=== PATIENT | male | born 1930 | race Caucasian/White ===

== ENCOUNTER 2016-09-06 15:27 | Outpatient (CLI) | payer MEDICARE, OTHER | END 2016-09-06 15:28 | disposition critical access hospital (66) | DX: R42 Dizziness and giddiness (principal); R51 Headache; H93.19 Tinnitus, unspecified ear | CPT/HCPCS: A0425; A0429 ==

== ENCOUNTER 2016-09-06 15:46 | Emergency (ER) | payer MEDICARE, OTHER | END 2016-09-06 17:25 | disposition home or self-care (01) | DX: R42 Dizziness and giddiness (principal); I10 Essential (primary) hypertension; Z95.2 Presence of prosthetic heart valve; Z79.01 Long term (current) use of anticoagulants; Z79.82 Long term (current) use of aspirin ==

== ENCOUNTER 2017-08-21 22:38 | Outpatient (CLI) | payer MEDICARE, OTHER | END 2017-08-21 22:39 | disposition short-term general hospital (02) | LOC: EMS 22:38 | PROVIDERS: ATTEND Surgery | DX: R06.02 Shortness of breath (principal); R50.9 Fever, unspecified | CPT/HCPCS: A0425; A0427; A0888 ==

== ENCOUNTER 2017-11-17 09:27 | Outpatient (CLI) | payer MEDICARE, OTHER | END 2017-11-17 09:28 | disposition short-term general hospital (02) | LOC: EMS 09:27 | PROVIDERS: ATTEND Surgery | DX: R11.0 Nausea (principal); R29.6 Repeated falls | CPT/HCPCS: A0425; A0427 ==

== ENCOUNTER 2017-12-15 08:00 | Outpatient (CLI) | payer MEDICARE, OTHER ==
[2017-12-15 12:04] LABS: CALCIUM 8.4 mg/dL (8.5-10.3); CREATININE 0.9 mg/dL (0.6-1.2)
[2017-12-15 12:11] LABS: BASOPHILS # (AUTO) 0.1 10^3/uL (0.0-0.1); EOSINOPHILS # (AUTO) 0.4 10^3/uL (0.0-0.7); EOSINOPHILS % (AUTO) 5.1 %; HGB - HEMOGLOBIN 8.1 g/dL (14.0-18.0); LYMPHOCYTES # (AUTO) 0.9 10^3/uL (1.5-3.5); LYMPHOCYTES % (AUTO) 12.1 %; MEAN CORPUSCULAR HEMOGLOBIN 23.6 pg (27.0-31.0); MEAN CORPUSCULAR HGB CONC 31.4 g/dL (32.0-36.0); MEAN CORPUSCULAR VOLUME 75.3 fL (80.0-94.0); MEAN PLATELET VOLUME 6.7 fL (7.4-11.4); MONOCYTES # (AUTO) 0.9 10^3/uL (0.0-1.0); MONOCYTES % (AUTO) 12.7 %; NEUTROPHILS % (AUTO) 69.1 %; PLT - PLATELET COUNT 321 10^3/uL (130-450); RED BLOOD COUNT 3.41 10^6/uL (4.70-6.10); RED CELL DISTRIBUTION WIDTH 20.6 % (12.0-15.0); WHITE BLOOD COUNT 7.2 x10^3/uL (4.8-10.8)
[2017-12-15 13:12] LABS: PLATELET ESTIMATE, MANUAL NORMAL (130-450,000) (NORMAL); PLATELET MORPHOLOGY 1+ LARGE PLATELETS (NORMAL)
== END 2017-12-15 08:01 ==
LOC: LAB.R 08:00
DX: I10 Essential (primary) hypertension (principal); D64.9 Anemia, unspecified
CPT/HCPCS: 80048; 85025

== ENCOUNTER 2017-12-23 08:00 | Outpatient (CLI) | payer MEDICARE, OTHER ==
[2017-12-23 16:50] LABS: EOSINOPHILS % (AUTO) 3.5 %; HGB - HEMOGLOBIN 8.5 g/dL (14.0-18.0); LYMPHOCYTES % (AUTO) 13.3 %; MEAN CORPUSCULAR HEMOGLOBIN 23.3 pg (27.0-31.0); MEAN CORPUSCULAR HGB CONC 30.7 g/dL (32.0-36.0); MEAN CORPUSCULAR VOLUME 75.7 fL (80.0-94.0); MEAN PLATELET VOLUME 6.8 fL (7.4-11.4); MONOCYTES % (AUTO) 11.8 %; NEUTROPHILS % (AUTO) 70.4 %; PLT - PLATELET COUNT 322 10^3/uL (130-450); RED BLOOD COUNT 3.67 10^6/uL (4.70-6.10); RED CELL DISTRIBUTION WIDTH 20.5 % (12.0-15.0); WHITE BLOOD COUNT 8.1 x10^3/uL (4.8-10.8)
[2017-12-23 16:55] LABS: ABNORMAL LYMPHS % (MANUAL) 0 %
[2017-12-23 16:58] LABS: CALCIUM 8.7 mg/dL (8.5-10.3); CREATININE 0.9 mg/dL (0.6-1.2)
[2017-12-23 18:00] LABS: BAND NEUTROPHILS % (MANUAL) 1 %; BASOPHILS # (MANUAL) 0.1 10^3/uL (0-0.1); BASOPHILS % (MANUAL) 1 %; DIFFERENTIAL COMMENT MANUAL DIFFERENTIAL; EOSINOPHILS # (MANUAL) 0.6 10^3/uL (0-0.7); LYMPHOCYTES # (MANUAL) 0.8 10^3/uL (1.5-3.5); LYMPHOCYTES % (MANUAL) 10 %; MONOCYTES # (MANUAL) 0.7 10^3/uL (0.0-1.0); NEUTROPHILS # (MANUAL) 5.9 10^3/uL (1.5-6.6); NEUTROPHILS % (MANUAL) 72 %; PLATELET ESTIMATE, MANUAL NORMAL (130-450,000) (NORMAL); PLATELET MORPHOLOGY NORMAL APPEARANCE (NORMAL)
== END 2017-12-23 08:01 | disposition home or self-care (01) ==
LOC: LAB.R 08:00
DX: E87.1 Hypo-osmolality and hyponatremia (principal); D64.9 Anemia, unspecified
CPT/HCPCS: 80048; 85025

== ENCOUNTER 2018-01-01 08:00 | Outpatient (CLI) | payer MEDICARE, OTHER ==
[2018-01-01 17:53] LABS: BILIRUBIN,URINE NEGATIVE (NEGATIVE); GLUCOSE, URINE (UA) NEGATIVE (NEGATIVE); KETONES,URINE (UA) NEGATIVE (NEGATIVE); LEUKOCYTE ESTERASE, URINE NEGATIVE (NEGATIVE); NITRITE,URINE NEGATIVE (NEGATIVE); OCCULT BLOOD,URINE SMALL (NEGATIVE); PROTEIN,URINE 30 mg/dL (NEGATIVE); UROBILINOGEN,URINE 0.2 (NORMAL) E.U./dL (NORMAL)
[2018-01-01 17:56] LABS: CLARITY,URINE HAZY (CLEAR)
[2018-01-01 17:58] LABS: BASOPHILS % (AUTO) 0.2 %; EOSINOPHILS % (AUTO) 1.1 %; HGB - HEMOGLOBIN 8.1 g/dL (14.0-18.0); LYMPHOCYTES % (AUTO) 9.1 %; MEAN CORPUSCULAR HEMOGLOBIN 23.3 pg (27.0-31.0); MEAN CORPUSCULAR HGB CONC 31.2 g/dL (32.0-36.0); MEAN CORPUSCULAR VOLUME 74.6 fL (80.0-94.0); MEAN PLATELET VOLUME 6.7 fL (7.4-11.4); MONOCYTES % (AUTO) 12.2 %; NEUTROPHILS % (AUTO) 77.4 %; PLT - PLATELET COUNT 371 10^3/uL (130-450); RED BLOOD COUNT 3.49 10^6/uL (4.70-6.10); RED CELL DISTRIBUTION WIDTH 20.6 % (12.0-15.0); WHITE BLOOD COUNT 11.5 x10^3/uL (4.8-10.8)
[2018-01-01 18:23] LABS: ALBUMIN 2.9 g/dL (3.2-5.5); ALBUMIN/GLOBULIN RATIO 0.8 (1.0-2.2); BILIRUBIN,TOTAL 0.7 mg/dL (0.2-1.0); CALCIUM 8.4 mg/dL (8.5-10.3); CREATININE 0.8 mg/dL (0.6-1.2); MAGNESIUM 1.9 mg/dL (1.7-2.8); TOTAL PROTEIN 6.4 g/dL (6.7-8.2)
[2018-01-01 18:34] LABS: BACTERIA,URINE Rare /HPF (None Seen); SQUAMOUS EPITHELIAL CELL,UR NONE SEEN (<= Few)
[2018-01-01 18:59] LABS: PLATELET ESTIMATE, MANUAL NORMAL (130-450,000) (NORMAL); PLATELET MORPHOLOGY NORMAL APPEARANCE (NORMAL)
[2018-01-01 19:00] LABS: DIFFERENTIAL COMMENT MANUAL=AUTO DIFF
== END 2018-01-01 08:01 | disposition home or self-care (01) ==
LOC: LAB.R 08:00
DX: R79.89 Other specified abnormal findings of blood chemistry (principal); R68.89 Other general symptoms and signs; N39.0 Urinary tract infection, site not specified; E87.1 Hypo-osmolality and hyponatremia; I50.43 Acute on chronic combined systolic (congestive) and diastolic (congestive) heart failure; E61.2 Magnesium deficiency
CPT/HCPCS: 80053; 81001; 81003; 83735; 83880; 85025

== ENCOUNTER 2018-01-12 08:00 | Outpatient (CLI) | payer MEDICARE, OTHER ==
[2018-01-12 16:03] LABS: CALCIUM 8.6 mg/dL (8.5-10.3); CREATININE 0.9 mg/dL (0.6-1.2)
== END 2018-01-12 08:01 | disposition home or self-care (01) ==
LOC: LAB.R 08:00
DX: E87.1 Hypo-osmolality and hyponatremia (principal)
CPT/HCPCS: 80048

== ENCOUNTER 2018-01-20 08:02 | Outpatient (CLI) | payer MEDICARE, OTHER, MEDICAID ==
[2018-01-20] MEDS ORDERED: IOPAMIDOL-300 50 ML VIAL ONE (08:13)
[2018-01-20] MEDS ORDERED: IOPAMIDOL-300 100 ML VIAL ONE (08:13)
[2018-01-20] MEDS ORDERED: IOPAMIDOL-300 100 ML VIAL IVP ONE (09:35)
[2018-01-20] MEDS ORDERED: IOPAMIDOL-300 50 ML VIAL PO ONE (09:35)
--- NOTE | 2018-01-20 15:45 | CT Report ---
Procedure Date: 01/20/2018 Accession Number: [id number] / [id number] Procedure: CT - Abdomen/Pelvis W/ CPT Code: FULL RESULT: EXAM: CT ABDOMEN AND PELVIS EXAM DATE: 01/20/2018 09:32 AM. CLINICAL HISTORY: PROSTATE CANCER. COMPARISONS: None. TECHNIQUE: Routine helical CT imaging was performed through the abdomen and pelvis. IV contrast: 100 cc Isovue-300. Enteric contrast: Positive. Reconstructions: Coronal and sagittal. In accordance with CT protocol optimization, one or more of the following dose reduction techniques were utilized for this exam: automated exposure control, adjustment of mA and/or KV based on patient size, or use of iterative reconstructive technique. FINDINGS: Lung Bases: Unremarkable. Liver: There are fluid density foci within the liver. Gallbladder/Bile Ducts: There is cholelithiasis. No evidence of cholecystitis or bile duct dilatation. Spleen: Normal. Pancreas: Normal. Adrenal Glands: Normal. Kidneys: Normal. No masses or hydronephrosis. Peritoneal Cavity/Bowel: No dilated or thick-walled bowel is seen. No enlarged mesenteric or retroperitoneal lymph nodes. No intraperitoneal free air. There is perirectal and presacral edema. No evidence of appendicitis. Pelvic Organs: Bladder catheter is in place. There may be some urinary bladder wall thickening. There is mild heterogeneity of the prostate gland. No enlarged pelvic lymph nodes are seen. Vasculature: No aneurysms or other significant abnormality. Bones: There is extensive bony metastatic disease. The posterior, inferior margin of the left obturator ring, within the left gluteal soft tissues, there is suggestion of a peripherally enhancing fluid collection measuring approximately 2.5 x 4.5 cm. Other: None. IMPRESSION: 1. There is extensive bony metastatic disease. 2. There is a peripherally enhancing hypodense region which could represent fluid collection at the inferior, posterior margin of the left obturator ring. There is some associated gluteal subcutaneous fat stranding. Differential considerations include abscess, seroma, or soft tissue metastasis. There is no CT evidence of adjacent osteomyelitis. 3. There is cholelithiasis. 4. Mild fat stranding and fluid within the pelvis. 5. The urinary bladder is decompressed. There may be some urinary bladder wall thickening. 6. The prostate is heterogeneous. 7. Findings within the chest are detailed separately. Findings of the study discussed with Dr. Williamson at 1540. RADIA
--- NOTE | 2018-01-20 15:46 | CT Report ---
Procedure Date: 01/20/2018 Accession Number: [id number] / [id number] Procedure: CT - Chest W/ CPT Code: FULL RESULT: EXAM: CT CHEST EXAM DATE: 01/20/2018 09:32 AM. CLINICAL HISTORY: PROSTATE CANCER. COMPARISONS: None. TECHNIQUE: Routine helical CT imaging was performed through the chest. IV contrast: 100 cc Isovue-300. Reconstructions: Coronal and sagittal. In accordance with CT protocol optimization, one or more of the following dose reduction techniques were utilized for this exam: automated exposure control, adjustment of mA and/or KV based on patient size, or use of iterative reconstructive technique. FINDINGS: Lungs/Pleura: There is groundglass opacity with interlobular septal thickening within the left upper lobe. There is a moderate-sized right pleural effusion. Small left pleural effusion. No discrete lung masses are seen. Mediastinum: The patient has undergone median sternotomy for aortic valve replacement. There are coronary artery calcifications. There is some crescent-shaped hyperdensity at the left anterior lateral margin of the descending aorta. There are no enlarged axillary, supraclavicular, mediastinal, or hilar lymph nodes. Bones: There is extensive sclerotic bony metastatic disease. There is fracture through the posterior right seventh rib. Visualized Abdomen: Findings are detailed separately. Other: None. IMPRESSION: 1. There is focal groundglass opacity within the left upper lobe with interlobular septal thickening. Differential considerations include infection, focal edema, or diffuse alveolar damage. This would be an atypical appearance for metastatic disease. 2. There is a moderate size right pleural effusion. There is a small left pleural effusion. 3. There is cardiomegaly. Patient has undergone aortic valve replacement with surgical repair of the aortic root. There is a focus of curvilinear hyperdensity at the left anterolateral margin of the ascending thoracic aorta (for example image 36 series 2). Differential considerations include postoperative change, remnant of prior type A dissection, or small new segment of dissection. Comparison with prior imaging is recommended. 4. There is extensive bony metastatic disease. RADIA The above findings were discussed with Peggy Williamson by Dr. Bora Panda at 15:45 hrs on 01/20/18.
--- NOTE | 2018-01-20 16:00 | Nuclear Medicine Report ---
Procedure Date: 01/20/2018 Accession Number: [id number] / [id number] Procedure: NM - Bone Whole Body CPT Code: FULL RESULT: EXAM: BONE SCAN EXAM DATE: 01/20/2018 12:52 PM. CLINICAL HISTORY: PROSTATE CANCER. COMPARISON: None. TECHNIQUE: Following the intravenous administration of mCi of technetium 99m MDP and an appropriate delay, a whole-body scan was performed in anterior and posterior projections. Site-specific spot views of the region of interest were obtained in various projections. FINDINGS: Exam Quality: Limited visualization of the kidneys, likely secondary to extensive bony uptake. Skull: There is heterogeneous uptake. Thorax: There are numerous lesions within the chest. There are lesions within the proximal humeri. Pelvis: There are numerous lesions within the pelvis. There are lesions within the proximal femurs. Spine: There is extensive metastatic disease within the spine. IMPRESSION: Extensive, diffuse osteoblastic metastatic disease RADIA
== END 2018-01-20 08:03 | disposition home or self-care (01) ==
LOC: DI 08:02
PROVIDERS: ATTEND Internal Medicine
DX: C61 Malignant neoplasm of prostate (principal); M89.9 Disorder of bone, unspecified; K80.20 Calculus of gallbladder without cholecystitis without obstruction; J90 Pleural effusion, not elsewhere classified; I51.7 Cardiomegaly; Z95.2 Presence of prosthetic heart valve
CPT/HCPCS: 71260; 74177; 78306; Q9967

== ENCOUNTER 2018-01-29 11:30 | Outpatient (CLI) | payer MEDICARE, OTHER ==
[2018-01-29 12:23] LABS: ALBUMIN 3.1 g/dL (3.2-5.5); BILIRUBIN,TOTAL 0.7 mg/dL (0.2-1.0); CALCIUM 8.5 mg/dL (8.5-10.3); CREATININE 0.9 mg/dL (0.6-1.2); TOTAL PROTEIN 6.3 g/dL (6.7-8.2)
[2018-01-29 12:46] LABS: BASOPHILS % (AUTO) 0.6 %; EOSINOPHILS % (AUTO) 2.8 %; HGB - HEMOGLOBIN 7.9 g/dL (14.0-18.0); LYMPHOCYTES % (AUTO) 8.8 %; MEAN CORPUSCULAR HEMOGLOBIN 22.7 pg (27.0-31.0); MEAN CORPUSCULAR HGB CONC 31.8 g/dL (32.0-36.0); MEAN CORPUSCULAR VOLUME 71.4 fL (80.0-94.0); MEAN PLATELET VOLUME 6.7 fL (7.4-11.4); NEUTROPHILS % (AUTO) 77.8 %; PLT - PLATELET COUNT 418 10^3/uL (130-450); RED CELL DISTRIBUTION WIDTH 21.4 % (12.0-15.0); WHITE BLOOD COUNT 12.1 x10^3/uL (4.8-10.8)
[2018-01-29 14:43] LABS: ABNORMAL LYMPHS % (MANUAL) 0 %
[2018-01-29 14:44] LABS: BAND NEUTROPHILS % (MANUAL) 8 %; EOSINOPHILS # (MANUAL) 0.2 10^3/uL (0-0.7); LYMPHOCYTES # (MANUAL) 0.2 10^3/uL (1.5-3.5); LYMPHOCYTES % (MANUAL) 2 %; METAMYELOCYTES % (MANUAL) 4 %; MONOCYTES # (MANUAL) 0.8 10^3/uL (0.0-1.0); MYELOCYTES % (MANUAL) 3 %; NEUTROPHILS # (MANUAL) 9.9 10^3/uL (1.5-6.6); NEUTROPHILS % (MANUAL) 74 %
[2018-01-29 14:45] LABS: DIFFERENTIAL COMMENT MANUAL DIFFERENTIAL; PLATELET ESTIMATE, MANUAL NORMAL (130-450,000) (NORMAL)
== END 2018-01-29 11:31 | disposition home or self-care (01) ==
LOC: LAB.R 11:30
DX: R79.89 Other specified abnormal findings of blood chemistry (principal); R68.89 Other general symptoms and signs
CPT/HCPCS: 80053; 85025

== ENCOUNTER 2018-02-03 12:35 | Outpatient (CLI) | payer MEDICARE, OTHER ==
--- NOTE | 2018-02-03 18:08 | CONSULTATION NOTE ---
Palliative Care Consultation - Referral Referring Provider: Dr Sandeep Hilliard Time of Visit: [place] 02/03/2018. 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 He is now living at [facility]. -Medical history: Prostate cancer diagnosed 08/2017 mets to bone; hyponatremia, anemia, HTN, BPV, valvular heart disease s/p surgical repair, aortic valve ( mechanical) replacement in 2003; atrial fibrillation with long-term anticoagulation; seizure disorder; GI bleeding; urinary retention on Sauceda catheter; recurrent C diff infection -In August 2017 he was admitted to [facility] for pneumonia, then to [facility] for rehabilitation. -He discharged home in November 2017 and 3 weeks later got community acquired pneumonia in R lower lobe, hospitalized at [facility] November 17. -He was DC'd to [facility] again, and then transferred to [facility] on December 09, 2017. -In December 2017 the prostate cancer was discovered when the patient had marked SOA , and a chest CT scan was done, showing R-sided infiltrate, concerning for either metastases or lung primary. -Patient had h/o enlarged prostate, so tumor markers were checked, which showed a marked PSA elevation of 5080. The rest of the tumor markers, including CA 19- 9 and CEA, SPEP, and UPEP were negative. -01/20/18 CT chest scan revealed moderate size R pleural effusion, and small L pleural effusion. No discrete lung masses. -01/20/18 CT abd/plelvis shows spleen, pancreas, adrenal glands, kidneys normal. Liver has fluid density foci. Gallbladder has cholelithiasis. -01/20/18 bone scan shows numerous lesions within the chest, numerous lesions within the pelvis, and extensive metastatic disease within the spine. -The plan is to do a bone biopsy on 02/10/18 rather than a lung biopsy since he is too frail for the lung biopsy. -Patient reports no pain. His most pressing issue is nausea, which has been off and on since August, when his health deteriorated. It had improved recently, but today it has worsened, and became worse after the Sauceda catheter was removed yesterday. -Patient has been on Sauceda catheter; a trial removal was performed yesterday and he has not been able to urinate with straight catheterization since the Sauceda was removed. -Nursing staff will replace the Sauceda due to retention. -He has had 3-4 recurrences of C diff colitis, and was treated with Vancomycin; the recent taper-down was completed 01/20/18. -Patient is cognitively intact, but has shown some cognitive deficits and has experienced delusional episodes, as reported by Dr Hilliard. -Patient was DC'd from PT and OT around January 07, but was referred again by Dr Hilliard on 01/28. OT has already evaluated him and will conduct sessions 2x/ week, PT hasn't evaluated him yet. -Patient has had low BP recently, 95/60 with this assessment today, 97/48 twice yesterday. -Spouse reports he doesn't drink much in the way of fluids, but she continually encourages him to drink more. -Patient denies cough, SOB, constipation. He does report dizziness, fell out of wheelchair 02/01. Medical/Surgical History - Past Medical History Cardiovascular: reports: Hypertension, Atrial fibrillation, Valve disorder Neuro: reports: Seizure disorder GI: reports: GI bleed : reports: Retention, Indwelling catheter, Other (gall stones revealed by CT abdomen) HEENT: reports: Macular degeneration MRSA Hx?: No - Past Surgical History Cardiovascular: reports: Valve replacement HEENT: reports: Tonsil/Adenoidectomy - Substance History Tobacco Details: Cigarettes (Smoked in early adulthood.), Other (No alcohol use) Social History - Living Situation Living arrangement: residential ([facility], admitted December 09, 2017) Living Situation: With caregiver(s) Support System: His , Tram lives in a condo in [place]. One daughter lives in the same condo complex. Their other daughter lives in [place], [place]. Their original plan was to move in to their daughter's condo, but this did not work out due to the patient's failing health. The spouse is unable to care for the patient at home. She applied for Medicaid, and the patient has been accepted. Family History - Family History Family History Comment/Other: Mother age 83 of heart problems; she had rheumatic fever in her youth. Father age 58, lung cancer (smoked). Patient had one sister who age 72 of heart disease. Medications/Allergies - Medications Home Medications: Ambulatory Orders Medication Instructions Recorded Confirmed Lamotrigine [Lamotrigine ER] 100 mg PO BID 05/01/15 02/03/18 Tamsulosin HCl [Flomax] 0.4 mg ORAL DAILY 05/01/15 02/03/18 Acetaminophen 650 mg PO Q4H PRN 02/03/18 02/03/18 Ferrous Gluconate 240 mg PO 02/03/18 Furosemide 20 mg PO DAILY 02/03/18 02/03/18 Lisinopril 5 mg PO DAILY PRN 02/03/18 02/03/18 Meclizine HCl [Travel-Ease] 25 mg PO Q6H PRN 02/03/18 02/03/18 Ondansetron HCl [Zofran] 4 mg PO .BEFORE MEALS & QHS 02/03/18 02/03/18 Pantoprazole Sodium 40 mg PO DAILY 02/03/18 02/03/18 Potassium Chloride [Micro-K] 10 meq PO DAILY 02/03/18 02/03/18 Saccharomyces Boulardii [Florastor] 250 mg PO DAILY 02/03/18 02/03/18 Warfarin Sodium [Coumadin] 3 mg PO .EVERY SUN,T,TH,SAT 02/03/18 02/03/18 Warfarin Sodium [Coumadin] 4 mg PO .EVERY M,W,F 02/03/18 02/03/18 - Allergies Allergies/Adverse Reactions: Allergies Allergy/AdvReac Type Severity Reaction Status Date / Time codeine Allergy Unknown Verified 09/06/16 15:54 morphine Allergy Unknown Verified 09/06/16 15:54 Review of Systems - Constitutional Constitutional: reports: Poor appetite (His appetite comes and goes), Weight stable (Weight has been stable, it's 159 lbs on 02/02/18, which was his weight on admission. He gained 2 lbs between 01/26 and 02/02.) - Eyes Eyes: reports: Vision loss, Corrective lenses - Cardiovascular Cardiovascular: reports: Decr. exercise tolerance - Respiratory Respiratory: denies: SOB at rest - Gastrointestinal Gastrointestinal: reports: Nausea, Other (Appetite waxes and wanes) - Genitourinary Genitourinary: reports: Other (Urinary retention.) - Musculoskeletal Musculoskeletal: reports: Assistive devices (Walker and wheelchair. Uses the wheelchair most often) - Psychiatric Psychiatric: reports: Delusions (Mr Hilliard reported some delusional thinking) - Hematologic/Lymphatic Hematologic/Lymphatic: reports: Recurrent infections (Pneumonia twice since August 2017) Physical Exam - Vital Signs Temperature: 98.0 F Pulse Rate: 74 O2 Saturation: 99 (room air) Blood Pressure: 95/60 - Physical Exam General Appearance: positive: No acute distress Eyes Bilateral: positive: No lid inflammation, Conjunctivae nml, No scleral icterus, Other (Crust on upper L eyelid) ENT: positive: Dry mucous membranes Neck: positive: Trachea midline Cardiovascular: positive: Irregular (mechanical aortic valve) Respiratory: positive: No respiratory distress, Breath sounds nml, Diminished in bases (no air sounds in RLL) Abdomen: positive: Soft, Tenderness (at bladder). negative: Distended Skin: positive: No symptoms Extremities: positive: No pedal edema, Other (complains of weak ankles) Neurologic/Psychiatric: positive: Oriented x3, Flat affect Palliative Care - POLST Patient has POLST: Yes POLST Status: DNR, Comfort Measures Pain: No pain Tiredness/Fatigue: Mild (1-3) Drowsiness/Sedation: None Nausea: Moderate (4-6) Depression: None Dyspnea: None Anorexia: Mild (1-3) Performance Status: Ambulatory with walker, but also uses wheelchair. Able to reposition himself in bed. Complains of nausea when he moves. - Palliative Care Discussion: The patient reports he is doing well, and that his life is in God's hands. He reports not being worried because of his [employer]ism ayaan. He and his along to the first [employer] in [place], and their payroll professional does visit him here at [facility]. Both the patient and his spouse are open to treatment as long as it does not involve a large amount of time and discomfort. The goal is comfort and quality of life. On the POLST they have emphasized that they do not want transfer to hospital, and have chosen comfort care. They are open to treatment to improve his symptoms, and palliative radiation if indicated. 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 He reports having had 22 treatments of radiation. Tram, his spouse, is interested in speaking with the palliative care social services for psychosocial support, so I will be making a referral. At this time the patient did not request any tandem mill roller support, but he and his are aware of this service through palliative care. The patient inquired about Dr. Romo, the medical scientific liaison, whom he knows through their mutual membership in the [employer]. Results - Lab Results Lab and Imaging Results: December 2017 PSA 5080 01/29/18: Na 127 L K 4.3 Cl 92 L CO2 27 Anion gap 8.0 BUN 16 Cr 0.9 GFR 80 L Glu 133 Ca 8.5 Total bili 0.7 AST 23 ALT 18 Alk Phos 159 H TP 6.3 L Alb 3.1 L Glob 3.2 A/G ratio 1.0 WBC 12.1 H RBC 3.5 L Hgb 7.9 L Hct 25 L MCV 71.4 L MCH 22.7 L MCHC 31.8 L RDW 21.4 H Plt 418 MPV 6.7 L Neut# 9.9 H Lymph# 0.2 L Impression and Recommendations - Palliative Care Impression: 87-year-old frail gentleman with prostate cancer metastasized to bones, currently pain-free but has ongoing nausea. Bone biopsy is scheduled for February 10. Patient and spouse are open to treatment and palliative radiation as long as treatment doesn't involve a lot of time and discomfort. Their goal is comfort and quality of life, and getting him back home if possible. Palliative care will provide oversight and support, with eventual transition to Hospice when appropriate. Recommendations/Counseling Done: Prostrate cancer mets to bone: Had oncology consultation with Dr Williamson on . there may be mets to lungs but he is too unstable for biopsy. They will do biopsy of bone on 02/10/18, so insurance can cover any treatment. Dr Williamson is considering LHRH analog leuprolide 22.5mg [id number], and Casodex / bicalutamide. Bisphosphonates can be used if there are impending fracture son the bone scan. Can consider palliative radiation treatment as well. Nausea: Continue ondansetron 4x daily, also has meclizine PRN for dizziness, currently not using it because of low BP. Hypotension: BP today 95/60, it was 97/[address] Hilliard will be decreasing lisinopril from 10mg to 5mg. Furosemide decreased from 40 to 20mg today. Patient educated and encouraged to increase fluids; his spouse reports he drinks very little fluids. He likes warm water; told the nurse. Labs: WBC is elevated at 12.1, which is relatively new. Patient is hyponatremic , currently 127, but was 25 at lowest. reports that he was on sodium restricted diet for many years, so he easily detects salt in the diet and thinks it's too salty. Recurrent pneumonia: Patient may be brewing an infection with the elevated WBC and low BP and increased nausea. Discussed with Dr Hilliard, he will speak with patient about starting an antibiotic. Debility: PT and OT evaluation were just reordered (he had stopped on 01/07/18). OT will start at 2x/week, PT has not yet evaluated him. Advanced care planning: POLST was signed in December 2017, DNR and comfort care. They do not want transfer to hospital. They are open to treatment for palliation , including radiation. He had radiation in 2002 for basal cell skin cancer and it went fine with no symptoms except on the last day. Will do referral to [employer] for psychosocial support of spouse. The bone biopsy is 02/10, they expect an oncology appointment after that, [facility] to follow up with phone call in mid-Feb to schedule follow up visit. Time Spent: 75 minutes were spent with more than 50% of the time spent on counseling, education, anticipatory guidance, and coordination of care.
== END 2018-02-03 12:36 | disposition home or self-care (01) ==
LOC: PC 12:35
PROVIDERS: ATTEND Nurse Practitioner
DX: Z51.5 Encounter for palliative care (principal); C61 Malignant neoplasm of prostate; C79.51 Secondary malignant neoplasm of bone; J90 Pleural effusion, not elsewhere classified; R11.0 Nausea; I95.9 Hypotension, unspecified; D72.829 Elevated white blood cell count, unspecified; E87.1 Hypo-osmolality and hyponatremia; R53.81 Other malaise; I10 Essential (primary) hypertension; I48.91 Unspecified atrial fibrillation; R33.9 Retention of urine, unspecified; G40.909 Epilepsy, unspecified, not intractable, without status epilepticus; R41.89 Other symptoms and signs involving cognitive functions and awareness; Z95.2 Presence of prosthetic heart valve; Z79.01 Long term (current) use of anticoagulants; Z87.01 Personal history of pneumonia (recurrent); Z86.19 Personal history of other infectious and parasitic diseases; Z91.81 History of falling; Z87.891 Personal history of nicotine dependence; Z79.899 Other long term (current) drug therapy; Z66 Do not resuscitate; Z85.828 Personal history of other malignant neoplasm of skin; Z92.3 Personal history of irradiation
CPT/HCPCS: 99306

== ENCOUNTER 2018-02-03 17:15 | Outpatient (CLI) | payer MEDICARE, OTHER ==
[2018-02-03 18:46] LABS: ALBUMIN 3.1 g/dL (3.2-5.5); CALCIUM 8.5 mg/dL (8.5-10.3); CREATININE 0.9 mg/dL (0.6-1.2); TOTAL PROTEIN 6.3 g/dL (6.7-8.2)
[2018-02-03 18:49] LABS: BASOPHILS % (AUTO) 0.2 %; EOSINOPHILS % (AUTO) 1.1 %; HGB - HEMOGLOBIN 8.2 g/dL (14.0-18.0); LYMPHOCYTES % (AUTO) 6.9 %; MEAN CORPUSCULAR HEMOGLOBIN 22.8 pg (27.0-31.0); MEAN CORPUSCULAR HGB CONC 32.1 g/dL (32.0-36.0); MEAN PLATELET VOLUME 6.7 fL (7.4-11.4); MONOCYTES % (AUTO) 13.8 %; PLT - PLATELET COUNT 403 10^3/uL (130-450); RED BLOOD COUNT 3.59 10^6/uL (4.70-6.10); WHITE BLOOD COUNT 18.4 x10^3/uL (4.8-10.8)
[2018-02-03 18:51] LABS: ABNORMAL LYMPHS % (MANUAL) 0 %
[2018-02-03 20:04] LABS: BAND NEUTROPHILS % (MANUAL) 4 %; EOSINOPHILS # (MANUAL) 0.2 10^3/uL (0-0.7); LYMPHOCYTES # (MANUAL) 1.1 10^3/uL (1.5-3.5); LYMPHOCYTES % (MANUAL) 6 %; METAMYELOCYTES % (MANUAL) 2 %; MONOCYTES # (MANUAL) 2.4 10^3/uL (0.0-1.0); MYELOCYTES % (MANUAL) 3 %; NEUTROPHILS # (MANUAL) 13.8 10^3/uL (1.5-6.6); NEUTROPHILS % (MANUAL) 71 %
[2018-02-03 20:07] LABS: PLATELET MORPHOLOGY 1+ LARGE PLATELETS (NORMAL)
[2018-02-03 20:08] LABS: PLATELET ESTIMATE, MANUAL NORMAL (130-450,000) (NORMAL)
== END 2018-02-03 17:16 | disposition home or self-care (01) ==
LOC: LAB.R 17:15
DX: C61 Malignant neoplasm of prostate (principal)
CPT/HCPCS: 80053; 85025

== ENCOUNTER 2018-02-12 15:07 | Outpatient (CLI) | payer MEDICARE, OTHER, MEDICAID ==
--- NOTE | 2018-02-12 15:43 | CONSULTATION NOTE ---
Palliative Care Follow Up - Referral Referring Provider: Dr Toby Hilliard Time of Visit: 02/12/2018. 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 He has been living at [facility] since December 09, 2017. -Medical history: Prostate cancer diagnosed 08/2017 mets to bone; valvular heart disease s/p surgical repair, aortic valve (mechanical) replacement in 2003; atrial fibrillation with long-term anticoagulation; hyponatremia, anemia, HTN, BPV, seizure disorder; GI bleeding; urinary retention on Sauceda catheter; recurrent C diff infection, recurrent pneumonia -He's had bouts of pneumonia in August, December, and January 2018 he was admitted to [facility] for pneumonia, then to [facility] for rehabilitation. -Bone scan in January shows numerous lesions within the chest, numerous lesions within the pelvis, and extensive metastatic disease within the spine. The patient is too unstable for a lung biopsy, so bone biopsy was scheduled for . -However, the bone biopsy did not occur - patient presented himself, but INR was too high (he had recently been started on antibiotics) for the procedure. It was 2.3, and 2.1 was the absolute cutoff, and it should preferably be under 2.0. -Patient was very disappointed, and facility is in process of rescheduling it. -02/05/18 the patient's WBC and neuts were quite elevated, and Dr Hilliard started him on Amoxicillin and a Z-alejandra, after discussing the risk of boni C diff again. The patient and his family agreed to antibiotics despite the risk. -Today the patient is looking much better since the antibiotic regimen started, and he reports feeling much better. -He says nausea is better, that Zofran at every meal and bedtime seems to be controlling it. -He is, however, susceptible to choking when swallowing meds, especially potassium. If he does choke and "upchuck" then "it's done" and he feels lousy the rest of the day. -OT and PT have started, twice weekly. There was at least one episode when OT therapy was cancelled due to nausea. It might have been a choking incident the patient was referring to. -Patient reports that "therapy is great" and says he really enjoys the sessions. -Note: Patient's spouse reports he has a strong reaction to any opioid; he was given morphine once that "extended his hospital stay by 5 days." She thinks the only pain medication he hasn't reacted to in the past was Demerol / meperidine. Social History - Living Situation Living arrangement: detention ([facility], admitted December 09, 2017.) Living Situation: With caregiver(s) Support System: His Breanne lives in a condo in [place], in the same complex as one of their daughters. Their other daughter lives in [place]. Breanne visits him daily. Medications/Allergies - Medications Home Medications: Ambulatory Orders Medication Instructions Recorded Confirmed Lamotrigine [Lamotrigine ER] 100 mg PO BID 05/01/15 02/12/18 Tamsulosin HCl [Flomax] 0.4 mg ORAL DAILY 05/01/15 02/12/18 Acetaminophen 650 mg PO Q4H PRN 02/03/18 02/12/18 Ferrous Gluconate 240 mg PO 02/03/18 Furosemide 20 mg PO DAILY 02/03/18 02/12/18 Lisinopril 5 mg PO DAILY PRN 02/03/18 02/12/18 Meclizine HCl [Travel-Ease] 25 mg PO Q6H PRN 02/03/18 02/12/18 Ondansetron HCl [Zofran] 4 mg PO .BEFORE MEALS & QHS 02/03/18 02/12/18 Pantoprazole Sodium 40 mg PO DAILY 02/03/18 02/12/18 Potassium Chloride [Micro-K] 10 meq PO DAILY 02/03/18 02/12/18 Saccharomyces Boulardii [Florastor] 250 mg PO DAILY 02/03/18 02/12/18 Warfarin Sodium [Coumadin] 3 mg PO .EVERY SUN,T,TH,SAT 02/03/18 02/12/18 Warfarin Sodium [Coumadin] 4 mg PO .EVERY M,W,F 02/03/18 02/12/18 Amoxicillin 1,000 mg PO TID MDD for 7 days 02/12/18 02/12/18 - Allergies Allergies/Adverse Reactions: Allergies Allergy/AdvReac Type Severity Reaction Status Date / Time codeine Allergy Unknown Verified 09/06/16 15:54 morphine Allergy Unknown Verified 09/06/16 15:54 Review of Systems - Constitutional Constitutional: reports: Weight stable (Current weight 157 lbs. This is his new baseline He has flucuated between 154.8 - 165 lbs since December, but is mainly in 158-162 range. When he lived at home, he was 183 lbs.). denies: Fatigue - Eyes Eyes: reports: Vision loss, Corrective lenses - Ears, Nose & Throat Ears, Nose & Throat: reports: Hearing loss - Cardiovascular Cardiovascular: denies: Chest pain, Decr. exercise tolerance - Respiratory Respiratory: denies: Cough, SOB at rest - Gastrointestinal Gastrointestinal: reports: Nausea (reports improvement with current regimen of Zofran QID). denies: Constipation - Musculoskeletal Musculoskeletal: reports: Assistive devices (walker and wheelchair, uses mostly the w/c) - Hematologic/Lymphatic Hematologic/Lymphatic: reports: Recurrent infections (pneumonias, C diff) Physical Exam - Vital Signs Temperature: 96.3 F Pulse Rate: 85 O2 Saturation: 95 (room air) Blood Pressure: 108/60 (arm cuff) - Physical Exam General Appearance: positive: No acute distress, Alert Eyes Bilateral: positive: EOMI, No lid inflammation, Conjunctivae nml, No scleral icterus ENT: positive: No signs of dehydration Neck: positive: Trachea midline Cardiovascular: positive: Other (heart valve) Respiratory: positive: Other (diminished R lobes) Abdomen: positive: Non-tender Extremities: positive: No pedal edema Neurologic/Psychiatric: positive: Oriented x3, Mood/affect nml Palliative Care - POLST Patient has POLST: Yes POLST Status: DNR, Comfort Measures - Palliative Care Discussion: The patient verified there ar jelly changes in his goals of care: treatment as long as it doesn't involve a large amount oftime and discomfort. Goal is comfot and quality of life. No transfer to hospital. He continues to talk of wanting to go home; if he could, he would be there now. He was quite disappointed that the bone biopsy did not occur; besides the hassle of getting there, he was especially disappointed because when the doctor said "you can go home afterwards," and his said he thought that meant he could go back and live at home, rather than just that he didn't need to wait around for the results. We spent some time discussing at least one person he knows of that was quite ill , who stopped eating and drinking and within 4 days. I asked him if he was considering doing that. He replied, "Oh no, not at all. I would not do that to my family." He spoke of how such an act would mar the future for him. He also spoke of his [employer]ism belief that his life is in the hands of God and that's God's decision to make. I called his spouse after the visit and she talked about the patient's ability pushing her buttons. She talked about this same story of an acquaintance who stopped eating and drinking. When I told her that the patient and I had spoken of this, and he said he would never do it, she became emotional with relief. She was very thankful to learn of this, because she felt he had been threatening , or at least contemplating doing that himself. She spoke of the stress his disease and diagnosis has placed on him, and on her as well. She also spoke of how grateful she is that we are here for them. I told her we were indeed, and she's not in this alone. I have referred this patient to [facility] [place] psychosocial support, specifically for the spouse. The patient's Mormonism ayaan is a significant support to him; he does not want crystal report developer support. Impression and Recommendations - Palliative Care Impression: 87-year-old frail gentleman with prostate cancer mets to bones and recurrent infections of pneumonia and C diff. He is currently doing very well, finishing up an antibiotic regimen for another bout of pneumonia. Denies pain, and reports nausea is currently controlled. Bone biopsy scheduled for 02/[address] due to INR being too elevated. Facility will reschedule. PT and OT have started, patient is hopeful he can discharge back home, this may not be likely, spouse is unable to provide adequate care. Palliative care will continue to provide oversight and support, with eventual transition to Hospice when criteria are met. Recommendations/Counseling Done: Prostrate cancer mets to bone: The bone biopsy did not take place due to elevated INR. Facility will reschedule it. There may be mets to lungs but a lung biopsy is ruled out because patient is not stable, hence the bone biopsy is needed so insurance can cover any treatment. After the bone biopsy, patient will have a follow up with Dr Williamson. From 01/14/[address] Williamson, she is considering LHRH analog leuprolide 22.5mg [id number], and Casodex / bicalutamide. Bisphosphonates can be used if there are impending fractureson the bone scan. Can consider palliative radiation treatment as well. Nausea: Improved on ondansetron 4x daily, and meclizine PRN for dizziness. Hypotension: Improved, BP today 108/60, at the previous palliative care visit it was 95/60. It appears Dr Hilliard DC'd lisinopril and furosemide. Recurrent pneumonia: Newest episode was 02/05, Dr Hilliard started amoxicilline 1000mg TID x 7 days and a Z alejandra. Pneumonia is resolving nicely amoxicillin completes tomorrow. Lungs clear on L, diminished on R. Debility: PT and OT started last week. Advanced care planning: POLST is DNR and comfort care, no transfer to hospital. They agree to treatment for palliation, including radiation. Their goal is comfort and quality of life, and getting him back home if possible. Made a referral last week to [facility] for psychosocial support of spouse. Time Spent: 45 minutes were spent with more than 50% of the time spent on counseling, education, anticipatory guidance, and coordination of care.
== END 2018-02-12 15:08 | disposition home or self-care (01) ==
LOC: PC 15:07
PROVIDERS: ATTEND Nurse Practitioner
DX: Z51.5 Encounter for palliative care (principal); C61 Malignant neoplasm of prostate; C79.51 Secondary malignant neoplasm of bone; R11.0 Nausea; I95.9 Hypotension, unspecified; J18.9 Pneumonia, unspecified organism; R53.81 Other malaise; R33.9 Retention of urine, unspecified; I48.91 Unspecified atrial fibrillation; I10 Essential (primary) hypertension; Z96.0 Presence of urogenital implants; Z79.01 Long term (current) use of anticoagulants; Z95.2 Presence of prosthetic heart valve; Z79.899 Other long term (current) drug therapy; Z86.19 Personal history of other infectious and parasitic diseases; Z88.6 Allergy status to analgesic agent; Z99.3 Dependence on wheelchair; Z66 Do not resuscitate
CPT/HCPCS: 99310

== ENCOUNTER 2018-02-26 08:00 | Outpatient (CLI) | payer MEDICARE, OTHER, MEDICAID ==
[2018-02-26 18:07] LABS: CALCIUM 8.6 mg/dL (8.5-10.3); CREATININE 0.8 mg/dL (0.6-1.2)
== END 2018-02-26 08:01 | disposition home or self-care (01) ==
LOC: LAB.R 08:00
PROVIDERS: ATTEND Family Medicine
DX: E87.1 Hypo-osmolality and hyponatremia (principal)
CPT/HCPCS: 80048; 85025

== ENCOUNTER 2018-03-10 08:00 | Outpatient (CLI) | payer MEDICARE, OTHER, MEDICAID ==
[2018-03-10 18:27] LABS: BASOPHILS % (AUTO) 0.6 %; EOSINOPHILS % (AUTO) 2.5 %; HGB - HEMOGLOBIN 8.6 g/dL (14.0-18.0); LYMPHOCYTES % (AUTO) 10.5 %; MEAN CORPUSCULAR HEMOGLOBIN 23.9 pg (27.0-31.0); MEAN CORPUSCULAR VOLUME 74.6 fL (80.0-94.0); MEAN PLATELET VOLUME 6.6 fL (7.4-11.4); MONOCYTES % (AUTO) 10.2 %; NEUTROPHILS % (AUTO) 76.2 %; PLT - PLATELET COUNT 276 10^3/uL (130-450); RED BLOOD COUNT 3.59 10^6/uL (4.70-6.10); RED CELL DISTRIBUTION WIDTH 23.1 % (12.0-15.0); WHITE BLOOD COUNT 10.5 x10^3/uL (4.8-10.8)
[2018-03-10 18:31] LABS: ABNORMAL LYMPHS % (MANUAL) 0 %
[2018-03-10 18:46] LABS: BAND NEUTROPHILS % (MANUAL) 5 %; EOSINOPHILS # (MANUAL) 0.4 10^3/uL (0-0.7); LYMPHOCYTES # (MANUAL) 1.6 10^3/uL (1.5-3.5); LYMPHOCYTES % (MANUAL) 15 %; METAMYELOCYTES % (MANUAL) 2 %; MONOCYTES # (MANUAL) 1.2 10^3/uL (0.0-1.0); MYELOCYTES % (MANUAL) 1 %; NEUTROPHILS % (MANUAL) 62 %
[2018-03-10 18:47] LABS: PLATELET ESTIMATE, MANUAL NORMAL (130-450,000) (NORMAL); PLATELET MORPHOLOGY NORMAL APPEARANCE (NORMAL)
[2018-03-10 18:48] LABS: DIFFERENTIAL COMMENT MANUAL DIFFERENTIAL
== END 2018-03-10 08:01 | disposition home or self-care (01) ==
LOC: LAB.R 08:00
DX: D64.9 Anemia, unspecified (principal)
CPT/HCPCS: 85025

== ENCOUNTER 2018-03-10 21:28 | Outpatient (CLI) | payer MEDICARE, OTHER, MEDICAID ==
[2018-03-11 01:07] LABS: BASOPHILS % (AUTO) 0.3 %; EOSINOPHILS % (AUTO) 2.4 %; HGB - HEMOGLOBIN 8.3 g/dL (14.0-18.0); LYMPHOCYTES % (AUTO) 10.3 %; MEAN CORPUSCULAR HEMOGLOBIN 24.3 pg (27.0-31.0); MEAN CORPUSCULAR HGB CONC 33.1 g/dL (32.0-36.0); MEAN CORPUSCULAR VOLUME 73.5 fL (80.0-94.0); MONOCYTES % (AUTO) 10.6 %; NEUTROPHILS % (AUTO) 76.4 %; PLT - PLATELET COUNT 268 10^3/uL (130-450); RED BLOOD COUNT 3.41 10^6/uL (4.70-6.10); RED CELL DISTRIBUTION WIDTH 23.4 % (12.0-15.0); WHITE BLOOD COUNT 10.4 x10^3/uL (4.8-10.8)
[2018-03-11 01:11] LABS: ABNORMAL LYMPHS % (MANUAL) 0 %
[2018-03-11 01:36] LABS: BAND NEUTROPHILS % (MANUAL) 9 %; EOSINOPHILS # (MANUAL) 0.1 10^3/uL (0-0.7); LYMPHOCYTES # (MANUAL) 1.2 10^3/uL (1.5-3.5); LYMPHOCYTES % (MANUAL) 9 %; METAMYELOCYTES % (MANUAL) 1 %; MONOCYTES # (MANUAL) 1.5 10^3/uL (0.0-1.0); MYELOCYTES % (MANUAL) 1 %; NEUTROPHILS # (MANUAL) 7.4 10^3/uL (1.5-6.6); NEUTROPHILS % (MANUAL) 62 %
[2018-03-11 01:37] LABS: DIFFERENTIAL COMMENT MANUAL DIFFERENTIAL; PLATELET ESTIMATE, MANUAL NORMAL (130-450,000) (NORMAL)
== END 2018-03-10 21:29 | disposition home or self-care (01) ==
LOC: LAB.R 21:28
DX: D64.9 Anemia, unspecified (principal)
CPT/HCPCS: 85025

== ENCOUNTER 2018-03-14 08:00 | Outpatient (CLI) | payer MEDICARE, OTHER, MEDICAID ==
[2018-03-14 18:09] LABS: ALBUMIN 3.8 g/dL (3.2-5.5); ALBUMIN/GLOBULIN RATIO 1.3 (1.0-2.2); CALCIUM 8.8 mg/dL (8.5-10.3); CREATININE 0.9 mg/dL (0.6-1.2); TOTAL PROTEIN 6.8 g/dL (6.7-8.2)
== END 2018-03-14 08:01 ==
LOC: LAB.R 08:00
PROVIDERS: ATTEND Family Medicine
DX: E87.1 Hypo-osmolality and hyponatremia (principal)
CPT/HCPCS: 80053

== ENCOUNTER 2018-03-17 16:15 | Outpatient (CLI) | payer MEDICARE, OTHER, MEDICAID ==
--- NOTE | 2018-03-17 20:07 | CONSULTATION NOTE ---
Palliative Care Follow Up - Referral Referring Provider: Dr Sandeep Hilliard. 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 He has been living at [facility] since December 09, 2017. -Medical history: Prostate cancer diagnosed 08/2017 mets to bone; valvular heart disease s/p surgical repair, aortic valve (mechanical) replacement in 2003; atrial fibrillation with long-term anticoagulation; hyponatremia, anemia, HTN, BPV, seizure disorder; GI bleeding; urinary retention on Sauceda catheter; recurrent C diff infection, recurrent pneumonia -He's had bouts of pneumonia in August, December, January, Feb 2018. His most recent antibiotic treatment was 02/05/18 amoxicillin 1,000mg TID x 7 days and a Z-pack. -Patient has had increased nausea recently. Dr Hilliard switched from Zofran to prochlorperazine suppository with good results. -Dr Hilliard attempted to start IV fluids, without success. -Patient has also had bad dreams/delusions in past week or so. -He has a very wet, rough sounding cough. He is afrebrile with stable vitals signs, no complaints of discomfort besides nausea, though not at time of visit. - reports he felt much better with the switch to the new medicine (the prochlorperazine suppository). -Nursing notes that last time he was sick, he was also having odd delusions (someone is trying to get in from the outside, or coming in from the roof, or in the bathroom, etc), and had nausea with some vomiting. -Bone biopsy of 03/05/18 is consistent with metastatic prostatic adenocarcinoma, and argues against lung adenocarcinoma. -His reports he is having memory issues and also mentions the bad dreams/delusions. Social History - Living Situation Living arrangement: halfway ([facility]) Living Situation: With caregiver(s) Support System: His Breanne visits frequently. She may cut back her visits to twice weekly on the advice of her physician. Medications/Allergies - Medications Home Medications: Ambulatory Orders Medication Instructions Recorded Confirmed Lamotrigine [Lamotrigine ER] 100 mg PO BID 05/01/15 03/17/18 Acetaminophen 650 mg PO Q4H PRN 02/03/18 03/17/18 Ferrous Gluconate 240 mg PO 02/03/18 Furosemide 20 mg PO DAILY 02/03/18 03/17/18 Meclizine HCl [Travel-Ease] 25 mg PO Q6H PRN 02/03/18 03/17/18 Potassium Chloride [Micro-K] 10 meq PO DAILY 02/03/18 03/17/18 Warfarin Sodium [Coumadin] 3 mg PO .EVERY FRI,T,TH,SAT 02/03/18 03/17/18 Warfarin Sodium [Coumadin] 4 mg PO .EVERY M,W,F 02/03/18 03/17/18 Guaifenesin [Tussin] 5 ml PO Q4H PRN 03/17/18 03/17/18 Latanoprost/Pf [Latanoprost 0.005% 1 drops EACHEYE .QHS 03/17/18 03/17/18 Eye Drop] Prochlorperazine Supp [Compazine 25 mg WI Q6H PRN 03/17/18 03/17/18 Supp] Saccharomyces Boulardii [Florastor] 250 mg PO BID 03/17/18 03/17/18 Senna [Senokot] 17.2 mg PO DAILY 03/17/18 03/17/18 Timolol 0.25% Ophth Drops 1 drops LEFTEYE BID 03/17/18 03/17/18 [Timoptic 0.25% Ophth Drops] - Allergies Allergies/Adverse Reactions: Allergies Allergy/AdvReac Type Severity Reaction Status Date / Time codeine Allergy Unknown Verified 09/06/16 15:54 morphine Allergy Unknown Verified 09/06/16 15:54 Review of Systems - Constitutional Constitutional: reports: Weakness, Weight loss (5% loss in one month (Jan - Feb 2018): 150.8 lbs 03/16/18. 158 lbs 02/23/18. 159.8 lbs 02/16/18. 157 lbs 02/09/18. 159 lbs 02/02/18. 156.8 lbs 01/26/18. 170.8 lbs 01/05/18. 159 lbs 12/09/17. Normal range 157-162 lbs) - Eyes Eyes: reports: Vision loss, Corrective lenses - Ears, Nose & Throat Ears, Nose & Throat: reports: Hearing loss, Postnasal drainage - Cardiovascular Cardiovascular: denies: Chest pain - Respiratory Respiratory: reports: Cough, SOB at rest - Gastrointestinal Gastrointestinal: reports: Nausea, Poor appetite. denies: Constipation - Musculoskeletal Musculoskeletal: reports: Assistive devices (wheelchair) - Neurological Neurological: reports: General weakness, Memory problems - Psychiatric Psychiatric: reports: Delusions, Hallucinations Physical Exam - Vital Signs Temperature: 96.7 F Pulse Rate: 91 O2 Saturation: 95 (room air) Blood Pressure: 110/70 (arm cuff) - Physical Exam General Appearance: positive: No acute distress, Alert, Moderate distress Eyes Bilateral: positive: No lid inflammation, Conjunctivae nml, No scleral icterus ENT: positive: No signs of dehydration Neck: positive: Trachea midline Cardiovascular: positive: No murmur, Irregularly irregular Respiratory: positive: No respiratory distress, Diminished in bases, Other (chesty, wet cough). negative: Wheezes, Rales (No crackles) Skin: positive: Pallor Extremities: positive: No pedal edema Neurologic/Psychiatric: positive: Oriented x3, Mood/affect nml Palliative Care - POLST POLST Status: DNR, Comfort Measures - Palliative Care Discussion: -His has seen her PCP and says she is seeing a "psychiatrist" for anxiety. -She has been advised to limit her visits to the patient to twice weekly, by her physician. -She has been started on medications for anxiety and depression: citalopram 20mg daily and alprazolam 25mg BID. -She is feeling guilty that she is not seeing him every day but she's been taking care of him for a long time, and has started realizing how much she has catered to him in the past. -She finds that with others he is upbeat and positive, but with her, she feels he is angry and keeps saying "I want to go home." -She is unable to say if the patient still wants to go forward with treatment. She notes that when he knows about a medical visit ahead of time, he becomes anxious and often it ends up that he misses the appointment for one reason or another. -Patient confirms that he is agreeable to pursuing treatment if it doesn't take a lot of time and discomfort. Results - Lab Results Lab and Imaging Results: -Bone biopsy of 03/05/18 is consistent with metastatic prostatic adenocarcinoma, and argues against lung adenocarcinoma. Impression and Recommendations - Palliative Care Impression: 87-year-old frail gentleman with prostate cancer mets to bones and recurrent infections of pneumonia. His N/V has increased, as have delusional/hallucinations at night/while dreaming, plus wet cough, possibly an indicator of a brewing respiratory infection. Vitals signs are stable with no fever. Nursing and certified medical asst will increase monitoring. Bone biopsy of 03/05 indicates metastatic prostatic adenocarcinoma but not lung adenocarcinoma. Patient wants to continue to pursue workup on treatment and has an oncology consultation scheduled for 03/25/18. Palliative care will continue to provide oversight and support. Recommendations/Counseling Done: Prostrate cancer mets to bone: The bone biopsy findins of 03/05/18 are consistent with metastatic prostatic adenocarcinoma, but argue against lung mets. Since lung biopsy was ruled out because he is not stable enough, the bone biopsy was needed so insurance can cover any treatment. Follow up oncology appointment with Dr Williamson is 03/25/18. From 01/14/[address] Williamson, she is considering LHRH analog leuprolide 22.5mg [id number], and Casodex / bicalutamide. Bisphosphonates can be used if there are impending fractureson the bone scan. Can consider palliative radiation treatment as well. Wet cough: Vital signs are stable and he's afebrile, but cough appears increased, and other signs of illness are increasing (nausea, delusional thinking). Consulted with Dr Hilliard and nursing that his wet cough is concerning but he is afebrile with stable vital signs. Patient says he's had it for a month. Nursing will monitor, Dr Hilliard will follow up with patient tomorrow. Nausea: Recently worsened; Dr Hilliard stopped ondansetron 4x daily, and started prochlorperazine 25mg suppository Q6h prn. Continue meclizine PRN for dizziness. Hypotension: Improved, BP today 110/70 with arm cuff. With wrist cuff it was 77/49. Furosemide has been restarted. Advanced care planning: POLST is DNR and comfort care, no transfer to hospital. Patient confirms interest in continuing to pursue treatment as long as it's not too timeconsuming or uncomfortable. is seeing a "psychiatrist" and has started antidepression and anxeity meds. She has been advised to limit visits to the patient to twice weekly due to stress and anxiety. Time Spent: 35 minutes were spent with more than 50% of the time spent on education, counseling, and coordination of care.
== END 2018-03-17 16:16 | disposition home or self-care (01) ==
LOC: PC 16:15
PROVIDERS: ATTEND Nurse Practitioner
DX: Z51.5 Encounter for palliative care (principal); C61 Malignant neoplasm of prostate; C79.51 Secondary malignant neoplasm of bone; R05 Cough; R11.2 Nausea with vomiting, unspecified; I95.9 Hypotension, unspecified; R44.3 Hallucinations, unspecified; I48.91 Unspecified atrial fibrillation; I10 Essential (primary) hypertension; Z87.01 Personal history of pneumonia (recurrent); Z79.899 Other long term (current) drug therapy; Z79.01 Long term (current) use of anticoagulants; Z95.2 Presence of prosthetic heart valve; Z99.3 Dependence on wheelchair; Z66 Do not resuscitate
CPT/HCPCS: 99310

== ENCOUNTER 2018-03-17 16:50 | Outpatient (CLI) | payer MEDICARE, OTHER, MEDICAID ==
[2018-03-17 18:16] LABS: PT - PROTHROMBIN TIME 52.5 secs (9.9-12.6)
[2018-03-17 18:26] LABS: INR 4.9 (0.8-1.2)
== END 2018-03-17 16:51 | disposition home or self-care (01) ==
LOC: LAB.R 16:50
DX: I48.91 Unspecified atrial fibrillation (principal)
CPT/HCPCS: 85610

== ENCOUNTER 2018-03-19 18:39 | Outpatient (CLI) | payer MEDICARE, OTHER, MEDICAID | END 2018-03-19 18:40 | disposition critical access hospital (66) | LOC: EMS 18:39 | PROVIDERS: ATTEND Surgery | DX: M25.551 Pain in right hip (principal); W05.0XXA Fall from non-moving wheelchair, initial encounter; Y92.129 Unspecified place in nursing home as the place of occurrence of the external cause ==

== ENCOUNTER 2018-03-19 18:45 | Emergency (ER) | payer MEDICARE, OTHER, MEDICAID ==
[2018-03-19] MEDS ORDERED: SODIUM CHLORIDE 0.9% 1,000 ML IV ONE (18:58)
[2018-03-19] MEDS ORDERED: ONDANSETRON 4 MG/2 ML VIAL IVP STA (18:58)
--- NOTE | 2018-03-19 19:03 | ED Physician Documentation ---
PD HPI Fall - Stated complaint Stated Complaint: GLF - HIT HEAD - Chief complaint Chief Complaint: Trauma Ext - History obtained from History obtained from: Patient, EMS, Caregiver ([facility]) - History of Present Illness Mechanism of injury: Unknown Fall distance: Sitting position (from wheelchair, fell to the ground and has pain in right hip. Also some of tight shoulder. States has been having some general weakness for the past few days.) Where injury occurred: Other ([facility]) Timing - onset: Today Injury(ies) location: Right Upper Extremity (shoulder), Right Lower Extremity (lateral hip). No: Head, Chest, Abdomen Quality of pain: Pain, Aching Associated symptoms: Weakness. No: LOC, AMS, Paresthesias, Nausea / vomiting Symptoms improve with: Rest Worsens with: Palpation. No: Movement Contributing factors: No: Anticoagulated, Intoxicated Review of Systems Ten Systems: 10 systems reviewed and negative Constitutional: reports: Myalgias, Fatigue. denies: Fever, Chills Nose: denies: Rhinorrhea / runny nose, Congestion Throat: denies: Sore throat Cardiac: denies: Chest pain / pressure, Palpitations Respiratory: denies: Dyspnea, Cough GI: reports: Nausea. denies: Abdominal Pain, Vomiting, Diarrhea, Bloody / black stool Neurologic: reports: Generalized weakness. 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 Patient is [place] by POL. Patient and family okayed patient to ER for evaluation of injury. ) HEENT: Macular degeneration - Past Surgical History Past Surgical History: Yes Cardiovascular: Valve replacement HEENT: Tonsil/Adenoidectomy - Present Medications Home Medications: Ambulatory Orders Medication Instructions Recorded Confirmed Lamotrigine [Lamotrigine ER] 100 mg PO BID 05/01/15 03/17/18 Acetaminophen 650 mg PO Q4H PRN 02/03/18 03/17/18 Ferrous Gluconate 240 mg PO 02/03/18 Furosemide 20 mg PO DAILY 02/03/18 03/17/18 Meclizine HCl [Travel-Ease] 25 mg PO Q6H PRN 02/03/18 03/17/18 Potassium Chloride [Micro-K] 10 meq PO DAILY 02/03/18 03/17/18 Warfarin Sodium [Coumadin] 3 mg PO .EVERY SUN,T,TH,SAT 02/03/18 03/17/18 Warfarin Sodium [Coumadin] 4 mg PO .EVERY M,W,F 02/03/18 03/17/18 Guaifenesin [Tussin] 5 ml PO Q4H PRN 03/17/18 03/17/18 Latanoprost/Pf [Latanoprost 0.005% 1 drops EACHEYE .QHS 03/17/18 03/17/18 Eye Drop] Prochlorperazine Supp [Compazine 25 mg IN Q6H PRN 03/17/18 03/17/18 Supp] Saccharomyces Boulardii [Florastor] 250 mg PO BID 03/17/18 03/17/18 Senna [Senokot] 17.2 mg PO DAILY 03/17/18 03/17/18 Timolol 0.25% Ophth Drops 1 drops LEFTEYE BID 03/17/18 03/17/18 [Timoptic 0.25% Ophth Drops] Cephalexin [Keflex] 500 mg PO TID #21 capsule 03/19/18 - Allergies Allergies/Adverse Reactions: Allergies Allergy/AdvReac Type Severity Reaction Status Date / Time codeine Allergy Unknown Verified 03/19/18 18:50 morphine Allergy Unknown Verified 03/19/18 18:50 - Living Situation Living Situation: reports: With family Living Arrangement: reports: [facility] - Social History Does the pt smoke?: No Smoking Status: Never smoker Does the pt have substance abuse?: No - POLST Patient has POLST: Yes PD ED PE NORMAL - Vitals Vital signs reviewed: Yes - General General: Alert and oriented X 3, Well developed/nourished. No: No acute distress (guarded ROM of right shoulder. ) - HEENT HEENT: Atraumatic, Pharynx benign - Neck Neck: Supple, no meningeal sign, No adenopathy, No JVD - Cardiac Cardiac: RRR, No murmur - Respiratory Respiratory: Clear bilaterally - Abdomen Abdomen: Normal bowel sounds, Soft, Non distended, No organomegaly - Back Back: No CVA TTP - Derm Derm: Warm and dry. No: Normal color (pale) - Extremities Extremities: No deformity, No tenderness to palpate - Neuro Neuro: Alert and oriented X 3, No motor deficit, Normal speech Eye Opening: Spontaneous Motor: Obeys Commands Verbal: Oriented GCS Score: 15 Results - Vitals Vitals: Vital Signs - 24 hr 03/19/18 18:46 Temperature 37.1 C Heart Rate 88 Respiratory 10 L Rate Blood Pressure 111/67 O2 Saturation 91 L Oxygen O2 Source Room air - Rads (name of study) head CT Radiology: Prelim report reviewed (no bleeding/acute process) chest and abd CT Radiology: Prelim report reviewed (no acute process; bony mets noted. Effusion right side mainly, slightly increased from prior images. ) right hip Radiology: Prelim report reviewed (no fractures) right shoulder Radiology: Prelim report reviewed (no fractures) PD MEDICAL DECISION MAKING - ED course Complexity details: reviewed results, re-evaluated patient, considered differential, d/w patient, d/w family ( and daughter come to the ER. They and patient would prefer him back at [facility]. Give IV fluids and iv abx in ED and transport back via EMS (He is full assist and unable to get to wheelchair himself per pt/family.) Departure - Departure Disposition: 01 Home, Self Care Clinical Impression: General weakness Fall from wheelchair Qualifiers: Encounter type: initial encounter Qualified Code(s): W05.0XXA - Fall from non- moving wheelchair, initial encounter Contusion, hip Qualifiers: Encounter type: initial encounter Laterality: right Qualified Code(s): S70.01XA - Contusion of right hip, initial encounter UTI (urinary tract infection) due to urinary indwelling catheter Qualifiers: Indwelling urinary catheter type: indwelling urethral catheter Encounter type: initial encounter Qualified Code(s): T83.511A - Infection and inflammatory react ion due to indwelling urethral catheter, initial encounter Condition: Stable Record reviewed to determine appropriate education?: Yes Follow-Up: Toby Hilliard DO [Primary Care Provider] - Prescriptions: Cephalexin [Keflex] 500 mg PO TID #21 capsule Comments: Continue usual medications and care. Add cephalexin 3 times a day for a week for the urinary tract infection. The culture will result in 2-3 days and your primary care can look up the results to see if the antibiotic needs changing. Drink lots of fluids.
[2018-03-19] MEDS ORDERED: IOPAMIDOL-300 100 ML VIAL ONE (19:12)
[2018-03-19 19:13] LABS: BASOPHILS % (AUTO) 0.3 %; EOSINOPHILS % (AUTO) 0.4 %; HGB - HEMOGLOBIN 9.1 g/dL (14.0-18.0); LYMPHOCYTES % (AUTO) 4.9 %; MEAN CORPUSCULAR HEMOGLOBIN 23.6 pg (27.0-31.0); MEAN CORPUSCULAR HGB CONC 31.6 g/dL (32.0-36.0); MEAN CORPUSCULAR VOLUME 74.8 fL (80.0-94.0); MEAN PLATELET VOLUME 6.5 fL (7.4-11.4); MONOCYTES % (AUTO) 7.1 %; NEUTROPHILS % (AUTO) 87.3 %; PLT - PLATELET COUNT 296 10^3/uL (130-450); RED BLOOD COUNT 3.84 10^6/uL (4.70-6.10); RED CELL DISTRIBUTION WIDTH 23.2 % (12.0-15.0); WHITE BLOOD COUNT 16.1 x10^3/uL (4.8-10.8)
[2018-03-19 19:15] LABS: ABNORMAL LYMPHS % (MANUAL) 0 %
[2018-03-19 19:21] LABS: INR 3.7 (0.8-1.2); PT - PROTHROMBIN TIME 39.8 secs (9.9-12.6)
[2018-03-19 19:24] LABS: ALBUMIN 3.6 g/dL (3.2-5.5); ALBUMIN/GLOBULIN RATIO 1.4 (1.0-2.2); CALCIUM 8.8 mg/dL (8.5-10.3); CREATININE 0.9 mg/dL (0.6-1.2); TOTAL PROTEIN 6.2 g/dL (6.7-8.2)
[2018-03-19 19:29] LABS: BAND NEUTROPHILS % (MANUAL) 7 %; DIFFERENTIAL COMMENT MANUAL DIFFERENTIAL; LYMPHOCYTES # (MANUAL) 1.3 10^3/uL (1.5-3.5); LYMPHOCYTES % (MANUAL) 8 %; METAMYELOCYTES % (MANUAL) 1 %; MYELOCYTES % (MANUAL) 2 %; NEUTROPHILS # (MANUAL) 13.4 10^3/uL (1.5-6.6); NEUTROPHILS % (MANUAL) 76 %; PLATELET ESTIMATE, MANUAL NORMAL (130-450,000) (NORMAL); PLATELET MORPHOLOGY NORMAL APPEARANCE (NORMAL)
[2018-03-19] MEDS ORDERED: IOPAMIDOL-300 100 ML VIAL IVP ONE (20:04)
--- NOTE | 2018-03-19 20:10 | XRAY Report ---
Reason: fall with right shoulder/upper arm pain on ROM Procedure Date: 03/19/2018 Accession Number: [id number] / [id number] Procedure: XR - Humerus RT CPT Code: FULL RESULT: EXAM: RIGHT HUMERUS RADIOGRAPHY EXAM DATE: 03/19/2018 07:58 PM. CLINICAL HISTORY: Fall with right shoulder/upper arm pain on ROM. COMPARISON: None. TECHNIQUE: 2 views. FINDINGS: Bones: No acute fracture. Joints: There is subacromial joint space narrowing. Soft Tissues: Unremarkable. IMPRESSION: No acute humerus fracture. Subacromial narrowing could reflect rotator cuff tear. RADIA
--- NOTE | 2018-03-19 20:21 | XRAY Report ---
Reason: fall with right hip pain Procedure Date: 03/19/2018 Accession Number: [id number] / [id number] Procedure: XR - Hip w/Pelvis 2-3V RT CPT Code: FULL RESULT: EXAM: RIGHT HIP AND PELVIS RADIOGRAPHY EXAM DATE: 03/19/2018 07:58 PM. HISTORY: Fall with right hip pain. COMPARISONS: ABDOMEN/PELVIS W/ 01/20/2018 9:21 AM. TECHNIQUE: 1 view of the pelvis and 1 view of the hip. FINDINGS: Bones: There are extensive sclerotic bone lesions in the pelvis and hips. No acute fracture is identified. Joints: Alignment is satisfactory. Soft Tissues: No dilated bowel loops. IMPRESSION: 1. Blastic skeletal metastatic disease. No acute fracture. RADIA
--- NOTE | 2018-03-19 20:40 | CT Report ---
Reason: fall today; on Coumadin Procedure Date: 03/19/2018 Accession Number: [id number] / [id number] Procedure: CT - Head W/O CPT Code: FULL RESULT: EXAM: CT HEAD EXAM DATE: 03/19/2018 08:00 PM. CLINICAL HISTORY: Fall today; on Coumadin. COMPARISON: None. TECHNIQUE: Multiaxial CT images were obtained from the foramen magnum to the vertex. Reformats: Sagittal and coronal. IV contrast: None. In accordance with CT protocol optimization, one or more of the following dose reduction techniques were utilized for this exam: automated exposure control, adjustment of mA and/or KV based on patient size, or use of iterative reconstructive technique. FINDINGS: Parenchyma: No intraparenchymal hemorrhage. No evidence of mass, midline shift, or CT findings of acute infarction. Cook-white differentiation is distinct. Diffuse chronic microangiopathic white matter changes. Extraaxial Spaces: Diffuse prominence of CSF-containing structures. No subdural or epidural collections. Ventricles: The ventricles and cortical sulci are enlarged, consistent with age-related tissue loss. Sinuses and orbits: Imaged paranasal sinuses, orbits, and mastoids show no significant abnormality. Bones: Unremarkable. Other: None. IMPRESSION: Generalized age-related cortical atrophic changes without evidence of acute intracranial abnormality. RADIA
--- NOTE | 2018-03-19 20:48 | CT Report ---
Reason: fall with right chest tenderness Procedure Date: 03/19/2018 Accession Number: [id number] / [id number] Procedure: CT - Chest W/ CPT Code: FULL RESULT: EXAM: CT CHEST EXAM DATE: 03/19/2018 08:14 PM. CLINICAL HISTORY: Fall with right chest tenderness. COMPARISONS: 01/20/2018. TECHNIQUE: Routine helical CT imaging was performed through the chest. IV contrast: 100 cc Isovue-300. Reconstructions: Coronal and sagittal. In accordance with CT protocol optimization, one or more of the following dose reduction techniques were utilized for this exam: automated exposure control, adjustment of mA and/or KV based on patient size, or use of iterative reconstructive technique. FINDINGS: Lungs/Pleura: Large right and small to moderate left pleural effusions, increased since previous exam, with underlying atelectasis, right much more than left. Previous left upper lobe infiltration has largely resolved, now with a 17 mm irregular density in that location. No pneumothorax. Mediastinum: Moderate cardiomegaly. No pericardial effusion. At least three-vessel coronary artery calcification. Mildly prominent mediastinal lymph nodes similar to previous exam. The precarinal node measures 18 mm. Bones: Diffuse mixed lytic and sclerotic lesions similar to previous exam. Status post median sternotomy. Posterolateral right seventh rib and lateral 10th rib fractures, present on previous study as well no definite acute fracture.. Visualized Abdomen: See separate report. Other: None. IMPRESSION: 1. Large right and small to moderate left pleural effusions, increased since previous study. 2. Decreasing left upper lobe infiltration. 3. Extensive metastatic bone disease with rib fractures again noted; no definite acute fracture. RADIA
--- NOTE | 2018-03-19 20:58 | CT Report ---
Reason: fall with some abd tenderness Procedure Date: 03/19/2018 Accession Number: [id number] / [id number] Procedure: CT - Abdomen/Pelvis W/ CPT Code: FULL RESULT: EXAM: CT ABDOMEN AND PELVIS EXAM DATE: 03/19/2018 08:14 PM. CLINICAL HISTORY: Fall with some abd tenderness. COMPARISONS: 01/20/2018. TECHNIQUE: Routine helical CT imaging was performed through the abdomen and pelvis. IV contrast: ISOVUE 300 100mL. Enteric contrast: No. Reconstructions: Coronal and sagittal. In accordance with CT protocol optimization, one or more of the following dose reduction techniques were utilized for this exam: automated exposure control, adjustment of mA and/or KV based on patient size, or use of iterative reconstructive technique. FINDINGS: Lung Bases: See separate report. Liver: Multiple hepatic lesions similar to previous exam. Gallbladder/Bile Ducts: Multiple small gallstones. No ductal dilation. Spleen: Normal. Pancreas: Normal. Adrenal Glands: Normal. Kidneys: Multiple cysts. No hydronephrosis. Peritoneal Cavity/Bowel: Moderate amount of colonic diverticulosis. No definite diverticulitis at this time. Moderate amount of free fluid tracking over liver and spleen and into the gutters. No free air or lymphadenopathy. The appendix is well visualized and normal. Pelvic Organs: Decompressed urinary bladder with Sauceda catheter in place. Vasculature: No aneurysms or other significant abnormality. Bones: Status post median sternotomy. Diffuse mixed lytic and sclerotic bone lesions may have increased a little, perhaps best appreciated in the sacrum and L1 vertebral body. Degenerative changes. 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 No definite fracture. Other: None. IMPRESSION: 1. No definite acute disease. 2. Diffuse metastatic disease of bone, increased since previous study. 3. No definite change of multiple hepatic lesions. 4. Cholelithiasis. 5. Moderate diverticulosis and other chronic or incidental findings. RADIA
[2018-03-19 21:30] LABS: BILIRUBIN,URINE NEGATIVE (NEGATIVE); GLUCOSE, URINE (UA) NEGATIVE (NEGATIVE); KETONES,URINE (UA) NEGATIVE (NEGATIVE); LEUKOCYTE ESTERASE, URINE MODERATE (NEGATIVE); NITRITE,URINE POSITIVE (NEGATIVE); OCCULT BLOOD,URINE TRACE-INTA (NEGATIVE); PH,URINE 5.5 PH (5.0-7.5); PROTEIN,URINE NEGATIVE (NEGATIVE); UROBILINOGEN,URINE 0.2 (NORMAL) E.U./dL (NORMAL)
[2018-03-19 21:31] LABS: CLARITY,URINE HAZY (CLEAR)
[2018-03-19 21:41] LABS: BACTERIA,URINE Moderate /HPF (None Seen); RBC,URINE 0-5 /HPF (0-5); SQUAMOUS EPITHELIAL CELL,UR NONE SEEN (<= Few); WBC CLUMPS,URINE PRESENT
[2018-03-19] MEDS ORDERED: cefTRIAXone 1 GM VIAL IVP STA (21:41)
[2018-03-19 22:38] VITALS: BP 114/60
[2018-03-19] MEDS ORDERED: ONDANSETRON ODT 4 MG TABLET TL STA (22:42)
== END 2018-03-19 23:33 | disposition home or self-care (01) ==
LOC: EDUNIT# → ED 18:45
DX: R53.1 Weakness (principal); S70.01XA Contusion of right hip, initial encounter; M25.511 Pain in right shoulder; W05.0XXA Fall from non-moving wheelchair, initial encounter; Y92.129 Unspecified place in nursing home as the place of occurrence of the external cause; T83.511A Infection and inflammatory reaction due to indwelling urethral catheter, initial encounter; Y84.9 Medical procedure, unspecified as the cause of abnormal reaction of the patient, or of later complication, without mention of misadventure at the time of the procedure; I10 Essential (primary) hypertension; Z95.2 Presence of prosthetic heart valve; Z79.01 Long term (current) use of anticoagulants; C79.51 Secondary malignant neoplasm of bone
CPT/HCPCS: 36415; 70450; 71260; 73060; 73502; 74177; 80053; 81001; 82550; 83690; 83735; 85025; 85610; 87086; 87181; 96361; 96374; 96375; 99284; Q0162; Q9967; 81003

== ENCOUNTER 2018-03-19 23:38 | Outpatient (CLI) | payer MEDICARE, OTHER, MEDICAID | END 2018-03-19 23:39 | LOC: EMS 23:38 | PROVIDERS: ATTEND Surgery | DX: N39.0 Urinary tract infection, site not specified (principal); R53.1 Weakness; M25.551 Pain in right hip; W05.0XXA Fall from non-moving wheelchair, initial encounter; Y92.129 Unspecified place in nursing home as the place of occurrence of the external cause | CPT/HCPCS: A0425; A0428; A0429 ==

== ENCOUNTER 2018-03-31 16:51 | Outpatient (CLI) | payer MEDICARE, OTHER, MEDICAID | END 2018-03-31 16:52 | disposition hospice, home (50) | LOC: EMS 16:51 | PROVIDERS: ATTEND Surgery | DX: R53.1 Weakness (principal) | CPT/HCPCS: A0425; A0428 ==